=== PATIENT | male | born 1950 | race Caucasian/White ===

== ENCOUNTER 2017-06-13 16:46 | Emergency (ER) | payer MEDICARE, OTHER ==
[2017-06-13] MEDS ORDERED: HYDROcodone/Acetaminophen 5/325 mg Tablet ONE (17:17)
--- NOTE | 2017-06-13 18:17 | RAD ---
AP AND LATERAL VIEWS LEFT FEMUR: 06/13/17 HISTORY: Fall with left femoral pain. AP and lateral views left femur is obtained. Vascular calcification seen in the left superficial femoral artery. No evidence of acute femoral fractures seen. There appears to be a possible area of radiolucency involving the lateral tibial plateau as well as f luid level in the suprapatellar bursa. I cannot exclude possibility of left lateral tibial plateau fr acture correlated dedicated four views left knee is recommended. IMPRESSION: Possible lateral tibial plateau fracture and left knee joint fluid. POS: ADRIANO
== END 2017-06-13 17:55 | disposition home or self-care (01) ==
LOC: NAV ERS 16:46
DX: S70.12XA Contusion of left thigh, initial encounter (principal); I10 Essential (primary) hypertension; W17.89XA Other fall from one level to another, initial encounter